=== PATIENT | female | born 1990 | race Caucasian/White ===

== ENCOUNTER 2020-05-17 13:18 | Inpatient (IN) ==
[2020-05-17 11:27] LABS: Basophils # 0.1 K/mcL (0.0-0.2); Basophils % 0.8 %; Eosinophils # 0.1 K/mcL (0.0-0.6); Eosinophils % 1.1 %; Hematocrit 40.1 % (35.3-44.9); Hemoglobin 13.4 g/dL (11.5-15.4); Immature Granulocytes % 2.9 % (0-4); Lymphocytes # 2.8 K/mcL (0.6-4.6); Lymphocytes % 21.8 %; Mean Corpuscular HGB Conc 33.4 g/dL (31.6-35.5); Mean Corpuscular Hemoglobin 30.7 pg (28.0-33.3); Mean Corpuscular Volume 91.8 fL (83.0-100.0); Mean Platelet Volume 9.7 fL (9.4-12.4); Monocytes # 1.1 K/mcL (0.0-1.3); Monocytes % 8.7 %; Neutrophils # 8.4 K/mcL (1.6-8.9); Platelet Count 238 K/mcL (140-400); Red Blood Count 4.37 M/mcL (3.82-4.97); Red Cell Distribution Width 13.3 % (11.5-14.5); Segmented Neutrophils % 64.7 %
[2020-05-17 12:32] LABS: Amphetamine Screen,Urine Negative ng/mL (Cutoff=1000); Barbiturate Screen,Urine Negative ng/mL (Cutoff=200); Benzodiazepines Screen,Urine Negative ng/mL (Cutoff=200); Cannabinoid Screen,Urine Negative ng/mL (Cutoff = 50); Cocaine Screen,Urine Negative ng/mL (Cutoff= 300); Opiate Screen,Urine Negative ng/mL (Cutoff=300); Phencyclidine Screen,Urine Negative ng/mL (Cutoff=25)
[~2020-05-17 13:18] MED LIST: EPHEDrine 50 MG/ML VIAL IVP PRN; Epidural Premix (fent/bupiv) 110 ML EP ONE; Epidural Premix (fent/bupiv) 110 ML EP SCH; Famotidine 20 MG/2 ML VIAL IVP PRN; Lidocaine 1% 20 ML MDV INFILT PRN; Metoclopramide 10 MG/2 ML VIAL IVP PRN; Naloxone 0.4 MG/ML INJ IVP PRN; Ondansetron 4 MG/2 ML VIAL IVP PRN; Oxytocin 20 units/ LR 1000 mL 20 UNIT/1,000 ML BAG IVC ONE; Penicillin G Potassium 2,500,000 UNIT/105 ML MLS IVPB SCH; Penicillin G Potassium 5,000,000 UNIT in 0.9 % Sodium Chloride Mini Bag 100 ML IVPB ONE; Ringers Solution, Lactated 1,000 ML IVC SCH; Ringers Solution, Lactated 1,000 ML ONE; Ropivacaine/PF 0.2% 20 ML VIAL EP ONE; Ropivacaine/PF 0.2% 20 ML VIAL ONE
[2020-05-17] MEDS ORDERED: Lanolin 7 G OINT...G. TP PRN (13:41)
[2020-05-17] MEDS ORDERED: Oxytocin 20 units/ LR 1000 mL 20 UNIT/1,000 ML BAG IVC ONE (13:41)
[2020-05-17] MEDS ORDERED: Acetaminophen 325 MG TABLET PO PRN (13:41)
[2020-05-17] MEDS ORDERED: Measles/Mumps/Rubella Vacc 0.5 ML VIAL SQ PRN (13:41)
[2020-05-17] MEDS ORDERED: Rho Immune Globulin 1,500 UNIT SYRINGE IM PRN (13:41)
[2020-05-17] MEDS ORDERED: Benzocaine/Menthol 56 GM AEROSOL SPRAY TP PRN (13:41)
[2020-05-17] MEDS ORDERED: Oxytocin 20 units/ LR 1000 mL 20 UNIT/1,000 ML BAG IVC SCH (13:41)
[2020-05-17 15:55] LABS: Rubella IgG Antibody POSITIVE (POSITIVE)
[2020-05-17 16:07] LABS: Hepatitis B Surface Antigen Nonreactive (Nonreactive)
[2020-05-17] MEDS: Ibuprofen 600 MG TABLET PO PRN (19:38)
[2020-05-17] MEDS: *HR* Buprenorphine HCl 8 MG TAB.SUBL SL SCH (20:55)
[2020-05-18 03:46] LABS: Basophils # 0.1 K/mcL (0.0-0.2); Basophils % 0.4 %; Eosinophils # 0.1 K/mcL (0.0-0.6); Eosinophils % 0.5 %; Hematocrit 30.7 % (35.3-44.9); Immature Granulocytes % 1.7 % (0-4); Lymphocytes # 3.9 K/mcL (0.6-4.6); Lymphocytes % 25.7 %; Mean Corpuscular HGB Conc 33.6 g/dL (31.6-35.5); Mean Corpuscular Hemoglobin 31.3 pg (28.0-33.3); Mean Corpuscular Volume 93.3 fL (83.0-100.0); Mean Platelet Volume 10.2 fL (9.4-12.4); Monocytes # 1.2 K/mcL (0.0-1.3); Monocytes % 7.8 %; Neutrophils # 9.7 K/mcL (1.6-8.9); Platelet Count 224 K/mcL (140-400); Red Blood Count 3.29 M/mcL (3.82-4.97); Red Cell Distribution Width 13.3 % (11.5-14.5); Segmented Neutrophils % 63.9 %; White Blood Count 15.2 K/mcL (4.3-11.1)
[2020-05-18 03:47] LABS: Hemoglobin 10.3 g/dL (11.5-15.4)
[2020-05-18] MEDS: *HR* Buprenorphine HCl 8 MG TAB.SUBL SL SCH ×2 (07:48→19:37)
[2020-05-18] MEDS: Prenatal Vit/FA 1 EACH TABLET PO SCH (07:48)
[2020-05-18] MEDS: Ibuprofen 600 MG TABLET PO PRN (17:20)
[2020-05-19] MEDS: Prenatal Vit/FA 1 EACH TABLET PO SCH (07:29)
[2020-05-19] MEDS: *HR* Buprenorphine HCl 8 MG TAB.SUBL SL SCH ×2 (07:30→19:53)
[2020-05-19 12:45] LABS: Basophils # 0.1 K/mcL (0.0-0.2); Basophils % 0.6 %; Eosinophils # 0.2 K/mcL (0.0-0.6); Eosinophils % 1.8 %; Hematocrit 29.2 % (35.3-44.9); Hemoglobin 9.9 g/dL (11.5-15.4); Immature Granulocytes % 2.1 % (0-4); Lymphocytes # 2.9 K/mcL (0.6-4.6); Lymphocytes % 29.1 %; Mean Corpuscular HGB Conc 33.9 g/dL (31.6-35.5); Mean Corpuscular Hemoglobin 31.1 pg (28.0-33.3); Mean Corpuscular Volume 91.8 fL (83.0-100.0); Mean Platelet Volume 9.5 fL (9.4-12.4); Monocytes # 0.6 K/mcL (0.0-1.3); Monocytes % 6.5 %; Neutrophils # 5.9 K/mcL (1.6-8.9); Platelet Count 221 K/mcL (140-400); Red Blood Count 3.18 M/mcL (3.82-4.97); Red Cell Distribution Width 13.2 % (11.5-14.5); Segmented Neutrophils % 59.9 %; White Blood Count 9.8 K/mcL (4.3-11.1)
[2020-05-19 13:04] LABS: Alanine Aminotransferase 22 Units/L (7-52); Aspartate Amino Transferase 35 Units/L (13-39); BUN/Creatinine Ratio 18 (6-26); Blood Urea Nitrogen 7 mg/dL (6-20); Lactate Dehydrogenase 216 Units/L (140-271); Uric Acid 5.3 mg/dL (2.3-7.6); eGFR For African Americans > 60 (> 60); eGFR For Non-African Americans > 60 (> 60)
[2020-05-19] MEDS ORDERED: NIFEdipine XL (24 HR) 30 MG TAB.ER.24 PO SCH (13:45)
[2020-05-19 20:12] VITALS: BP 120/85
== END 2020-05-19 21:38 | disposition home or self-care (01) | DRG 560 ==
LOC: 1NENULAB → 1NENUOBS 15:27
PROVIDERS: ADMIT Advanced Practice Midwife; ATTEND Advanced Practice Midwife